=== PATIENT | male | born 1970 | race Caucasian/White ===

== ENCOUNTER → 2024-04-29 07:36 | Outpatient (REF) | payer OTHER, SELFPAY ==
[2024-04-29 11:48] LABS: Blood Urea Nitrogen 18 mg/dl (9-20); Calcium 10.1 mg/dl (8.4-10.2); Carbon Dioxide 31 mmol/L (22-30); Chloride 101 mmol/L (98-107); Glucose 86 mg/dl (70-99); Potassium 4.9 mmol/L (3.5-5.1); Sodium 138 mmol/L (135-145); eGFR 59.73
== END ==
LOC: MRI 3T 07:36
PROVIDERS: ATTENDING PHYSICIAN Radiology Diagnostic Radiology
DX: N28.89 Other specified disorders of kidney and ureter (principal)
CPT/HCPCS: 36415; 71046; 74183; 80048; A9575